=== PATIENT | female | born 1965 | race Caucasian/White ===

== ENCOUNTER → 2017-06-08 | Day surgery (SDC) | payer BC ==
[~2017-06-08] MED LIST: IV RINGERS,LACTATED 1000ML 1,000 ML IV SCH; LEVO88TA4; LIDOCAINE 2% PF Vial for OR 5 ML VIAL. ONE; LISI-334; PROPOFOL 40 ML IV ONE
[2017-06-08 13:02] VITALS: BP 122/75
--- NOTE | 2017-06-08 17:57 | CONS ---
DATE OF CONSULTATION: 06/08/2017 REFERRING PHYSICIAN: Carina Conrad. HISTORY OF PRESENT ILLNESS: A 52-year-old female whose past medical history is significant for hypertension, hypothyroidism, osteoarthritis is seen for screening colon exam. Bowel habits are regular without diarrhea or constipation. There has been no melena or hematochezia. Weight and appetite are stable. She has not undergone previous studies. PAST MEDICAL HISTORY: Hypertension, hypothyroidism. FAMILY HISTORY: Significant for colon cancer in maternal grandmother. FAMILY AND SOCIAL HISTORY: Nondrinker, former smoker. MEDICATIONS: Include lisinopril 20 mg daily, levothyroxine 88 mcg daily. PAST SURGICAL HISTORY: 1, para 1. REVIEW OF SYSTEMS: Per records. PHYSICAL EXAMINATION: GENERAL: Reveals a well-nourished, well-developed female who is alert, cooperative, in no acute distress. She is afebrile. VITAL SIGNS: Pulse 75, respiratory rate 18, blood pressure is 130/70. HEENT: Normocephalic and atraumatic head. Pupils and extraocular movements not tested. Sclerae anicteric. NECK: Supple. LUNGS: Clear. CARDIOVASCULAR: Reveals S1, S2 without S3, S4 or appreciable murmur. ABDOMEN: Soft abdomen, normal bowel sounds, without appreciable hepatosplenomegaly. EXTREMITIES: Reveals no cyanosis, clubbing or edema. IMPRESSION: Colorectal screening is warranted at this time. Risks and benefits of procedure including risk of perforation during the operation have been discussed with the patient. The patient is willing to proceed. I would like to thank [place] for allowing us to consult and participate in the patient's care. DELMY GERBER MD DR: JUSTO/ciro JOB#: [id number] / [id number]
== END | disposition home or self-care (01) ==
LOC: ENDOS 10:29
PROVIDERS: ATTEND Internal Medicine Gastroenterology
DX: Z12.11 Encounter for screening for malignant neoplasm of colon (principal); K64.1 Second degree hemorrhoids; I10 Essential (primary) hypertension; E66.9 Obesity, unspecified; Z68.43 Body mass index [BMI] 50.0-59.9, adult; E03.9 Hypothyroidism, unspecified; Z86.39 Personal history of other endocrine, nutritional and metabolic disease; Z87.891 Personal history of nicotine dependence
CPT/HCPCS: 45378; J2704; J2001